=== PATIENT | male | born 1955 | race Caucasian/White ===

== ENCOUNTER → 2024-02-10 | Emergency (ER) | payer MEDICARE, BC ==
[~2024-02-10] VITALS: Ht 172.7 cm; Wt 59.0 kg
[~2024-02-10] MED LIST: BACI/NEOM/POLY B OINT PKT 1 UDPKT PACKET ONE
[2024-02-10 12:03] VITALS: BP 108/65; TEMP 98.6
[2024-02-10] MEDS: BACI/NEOM/POLY B OINT PKT 1 UDPKT PACKET TP ONE (12:30)
[2024-02-10 12:40] VITALS: O2SAT 98
== END | disposition home or self-care (01) ==
LOC: ER 12:02
DX: S00.81XA Abrasion of other part of head, initial encounter (principal); Z85.46 Personal history of malignant neoplasm of prostate; Z88.0 Allergy status to penicillin; Z91.010 Allergy to peanuts; W22.8XXA Striking against or struck by other objects, initial encounter; Y93.89 Activity, other specified; Y92.89 Other specified places as the place of occurrence of the external cause; Y99.8 Other external cause status